=== PATIENT | female | born 1940 | race Caucasian/White ===

== ENCOUNTER 2019-02-04 11:45 | Outpatient (CLI) | payer MEDICARE ==
--- NOTE | 2019-02-04 14:53 | ULT ---
BILATERAL CAROTID DUPLEX ULTRASOUND INCLUDING COLOR AND SPECTRAL DOPPLER IMAGING: DATE: 02/04/19 HISTORY: Bilateral carotid stenosis. FINDINGS: Minimal intimal thickening. PSV Right ICA: 48 cm/sec EDV: 15 cm/sec ICA/CCA Ratio: 0.6 PSV Left ICA: 48 cm/sec EDV: 17 cm/sec ICA/CCA Ratio: 0.8 Vertebral flow is antegrade. IMPRESSION: No hemodynamically significant stenosis. 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 POS: [facility]
== END 2019-02-04 11:46 | disposition home or self-care (01) ==
LOC: NAV ULT 11:45
PROVIDERS: ATTEND Family Medicine
DX: I65.23 Occlusion and stenosis of bilateral carotid arteries (principal)
CPT/HCPCS: 93880

== ENCOUNTER 2020-03-13 09:48 | Emergency (ER) | payer MEDICARE ==
[2020-03-13 10:34] LABS: Bacteria/HPF Rare-Few HPF (None Seen); Bilirubin Negative (Negative); Blood, Urine Small (Negative); Clarity Clear (Clear); Glucose, Urine (Dipstick) Negative (Negative); Leukocyte Large (Negative); Nitrite Negative (Negative); Protein, Urine (Dipstick) Trace mg/dL (Neg-Trace); RBC/HPF 0-3 HPF (0-3); Squamous Epithelial 0-3 HPF (0-3); Urobilinogen 0.2 mg/dL (Less than 2); WBC/HPF 21-50 HPF (0-3)
[2020-03-13] MEDS ORDERED: Nitrofurantoin Macrocrystal 50 MG CAP ONE (11:11)
== END 2020-03-13 11:16 | disposition home or self-care (01) ==
LOC: NAV ERS 09:48
DX: N39.0 Urinary tract infection, site not specified (principal); E11.9 Type 2 diabetes mellitus without complications; E03.9 Hypothyroidism, unspecified; E78.5 Hyperlipidemia, unspecified; E78.00 Pure hypercholesterolemia, unspecified; I10 Essential (primary) hypertension; F41.9 Anxiety disorder, unspecified; F32.9 Major depressive disorder, single episode, unspecified; Z85.3 Personal history of malignant neoplasm of breast; Z79.82 Long term (current) use of aspirin; Z79.84 Long term (current) use of oral hypoglycemic drugs; Z79.899 Other long term (current) drug therapy
CPT/HCPCS: 81003; 81015; 87077; 87086; 87186; 99283